=== PATIENT | female | born 1960 | race African-American/Black ===

== ENCOUNTER 2018-12-28 13:15 | Emergency (ER) | payer BC ==
[~2018-12-28] VITALS: Ht 157.5 cm; Wt 82.0 kg
[2018-12-28] MEDS ORDERED: KETOROLAC 30MG/ML VIAL IV STA (17:42)
[2018-12-28] MEDS ORDERED: ONDANSETRON HCL 4MG/2ML INJ IV STA (17:42)
[2018-12-28 18:07] LABS: BASOPHILS % 0.3 % (0.0-2.0); EOSINOPHILS % 1.7 % (0.0-5.0); HEMATOCRIT. 41.2 % (36.0-48.0); HEMOGLOBIN. 13.5 g/dL (12.0-16.0); LYMPHOCYTES % 27.2 % (20.0-50.0); MEAN CORPUSCULAR HEMOGLOBIN 27.9 pg (28.0-32.0); MEAN CORPUSCULAR VOLUME 85.1 fL (81.0-99.0); MEAN PLATELET VOLUME 9.2 fl (7.4-10.4); NEUTROPHILS % 62.8 % (40.0-76.0); PLATELET 125 x1000/uL (130-400); RED BLOOD CELL COUNT 4.84 mill/uL (4.2-5.4); RED CELL DISTRIBUTION WIDTH 14.4 % (11.6-14.6)
[2018-12-28 18:09] LABS: CHLORIDE 109 mEq/L (98-107); PROTHROMBIN TIME 10.4 sec (9.1-11.1)
[2018-12-28] MEDS ORDERED: MORPHINE SULFATE 4 MG/ML CPJ (NOT FOR IM USE) IV ONE ×2 (18:45)
[2018-12-28] MEDS ORDERED: IOHEXOL-300 100 ML BOTTLE ONE (19:31)
[2018-12-28] MEDS ORDERED: VANCOMYCIN 1 G PREMIX 200 ML IV SCH (20:30)
[2018-12-28] MEDS ORDERED: PIPERACILLIN/TAZ 3.375G PREMIX 50 ML IV ONE (20:30)
[2018-12-28] MEDS ORDERED: LIDOCAINE 1%/EPI 1:100,000 10 ML VIAL IJ ONE (20:45)
[2018-12-28] MEDS ORDERED: LIDOCAINE HCL/EPINEPHRINE 1%-EPI 1:100,000 20 ML VIAL INFIL ONE (20:45)
[2018-12-28 21:50] VITALS: BP 106/53
== END 2018-12-28 23:06 | disposition home or self-care (01) ==
LOC: ER 13:15
DX: L72.3 Sebaceous cyst (principal); R10.9 Unspecified abdominal pain; I10 Essential (primary) hypertension; Z88.0 Allergy status to penicillin
CPT/HCPCS: 10060; 36415; 74177; 80053; 83690; 85025; 85610; 96365; 96375; 99284; A4217; J1885; J2270; J2405; J2543; J3370; J3490; Q9967; Z7610